=== PATIENT | female | born 1985 | race Caucasian/White ===

== ENCOUNTER 2017-04-26 10:30 | Inpatient (IN) | payer MEDICAID ==
[~2017-04-26] VITALS: Ht 149.9 cm; Wt 75.4 kg
[~2017-04-26 10:30] MED LIST: PREN1TAB49
[2017-04-26 10:44] VITALS: Ht 149.9 cm; Wt 75.4 kg
[2017-04-26 10:53] VITALS: BP 118/62; PULSE 70; RESP 18
[2017-04-26] MEDS ORDERED: LACTATED RINGER'S 1,000 ML IV SCH (12:00)
[2017-04-26 12:53] LABS: ADD SCAN DIFF NO
[2017-04-26 12:59] LABS: ABNORMAL IP MESSAGE 1; BASOPHILS % 0.2 % (0.0-2.0); EOSINOPHILS % 0.4 % (0.0-7.0); HEMATOCRIT 37.5 % (37.0-47.0); HEMOGLOBIN 12.5 g/dl (12.0-16.0); LYMPHOCYTES # 1.2 10^3/ul (0.8-2.9); LYMPHOCYTES % 13.7 % (15.0-51.0); MEAN CORPUSCULAR HEMOGLOBIN 28.2 pg (29.0-33.0); MEAN CORPUSCULAR HGB CONC 33.3 g/dl (32.0-37.0); MEAN CORPUSCULAR VOLUME 84.7 fl (82.0-101.0); MEAN PLATELET VOLUME 13.7 fl (7.4-10.4); MONOCYTE # 0.7 10^3/ul (0.3-0.9); MONOCYTES % 7.2 % (0.0-11.0); NEUTROPHILS % 78.2 % (39.0-77.0); PLATELET COUNT 135 10^3/UL (140-415); RED BLOOD COUNT 4.43 10^6/ul (4.20-5.40); RED CELL DISTRIBUTION WIDTH 13.1 % (11.5-14.5)
[2017-04-26] MEDS ORDERED: TERBUTALINE 1 ML ONE (13:15)
[2017-04-26 13:20] LABS: INR 0.91; PROTIME 12.2 Sec (12.2-14.2)
[2017-04-26] MEDS ORDERED: CARBOPROST 250 MCG INJ IM PRN ×2 (13:30→20:00)
[2017-04-26] MEDS ORDERED: OXYTOCIN 30 UNITS/LR 500 ML IV PRN ×2 (13:30→20:00)
[2017-04-26] MEDS ORDERED: TERBUTALINE 1 MG/ML INJ SC ONE ×2 (13:30)
[2017-04-26] MEDS ORDERED: MISOPROSTOL 200 MCG TAB PR PRN ×2 (13:30→20:00)
[2017-04-26] MEDS ORDERED: METHYLERGONOVINE 0.2 MG INJ IM PRN ×2 (13:30→20:00)
[2017-04-26] MEDS: LACTATED RINGER'S 1,000 ML IV SCH ×3 (13:31→14:53)
[2017-04-26] MEDS ORDERED: CEFAZOLIN 2 GM/50 ML (PMX) 50 ML IVPB ONE (13:42)
--- NOTE | 2017-04-26 13:47 | TRIAGE ---
OB Triage Datetime Report Generated by CPN: 04/26/2017 13:46 Datetime: 04/26/2017 13:25 Assessment Type: Admission Assessment Vaginal Bleeding: None Maternal Assessment Level of Consciousness: Fully Conscious DTR's/Clonus: DTRs 2+; No Clonus Headache: Denies Blurred Vision: No Respiratory Effort: Unlabored; Regular Rhythm; Equal Expansion Breath Sounds, Left: Clear and Equal Breath Sounds, Right: Clear and Equal Nausea/Vomiting: Denies RUQ Epigastric Pain: Denies Lower Extremities Edema: None Degree: None Upper Extremities Edema: None Degree: None Facial Edema: None Fall Risk Assessment History of Falling: (0) No Secondary Diagnosis: (0) No Ambulatory Aid: (0) Bedrest/Nurse Assist Gait: (0) Normal/Bedrest/Immobile Mental Status: (0) Oriented to Own Ability Labor Evaluation Frequency: 3-4 Duration (sec)2399: 60 Heart Rate FHR Baseline Rate: 150 Variability: Moderate 6-25 bpm Accelerations: 15X15 Decelerations: None Category: Category I Pain Assessment Pain Scale: 5 Pain Presence: Intermittent Pain Type: Cramping; Contraction Pain Location: Abdomen Membrane Status: Intact Datetime: 04/26/2017 13:20 Stage of : Labor Headache: Denies Blurred Vision: No RUQ Epigastric Pain: Denies Facial Edema: None Labor Evaluation Frequency: 3 Monitor Mode: External Duration (sec)2399: 70 Quality: Moderate Pattern: Normal: <= 5 Contractions in 10 Minutes Resting Tone [place]: Relaxed Heart Rate FHR Baseline Rate: 150 Monitor Mode: External US FHR Baseline Changes: No Baseline Change Variability: Moderate 6-25 bpm Accelerations: 15X15 Decelerations: None Category: Category I Pain Presence: Intermittent Pain Type: Contraction Pain Location: Abdomen Pain Relief Measures: Comfort Measures Membrane Status: Intact Datetime: 04/26/2017 12:00 Labor Evaluation Frequency: 3-4 Monitor Mode: External Duration (sec)2399: 60 Quality: Moderate Pattern: Normal: <= 5 Contractions in 10 Minutes Resting Tone [place]: Relaxed Heart Rate FHR Baseline Rate: 150 Monitor Mode: External US FHR Baseline Changes: No Baseline Change Variability: Moderate 6-25 bpm Accelerations: 15X15 Decelerations: None Category: Category I Membrane Status: Intact Datetime: 04/26/2017 11:01 Labor Evaluation Frequency: 3-4 Monitor Mode: External Duration (sec)2399: 60 Quality: Moderate Pattern: Normal: <= 5 Contractions in 10 Minutes Resting Tone [place]: Relaxed Heart Rate FHR Baseline Rate: 150 Monitor Mode: External US FHR Baseline Changes: No Baseline Change Variability: Moderate 6-25 bpm Accelerations: 15X15 Decelerations: None Category: Category I Datetime: 04/26/2017 10:55 Vaginal Exam Dilatation (cms): 0.0 Effacement (%): 40 Station: -3 Exam By: [facility] Vaginal Bleeding: None Cervix, Consistency: Firm Cervix, Position: Posterior Presentation 'A': Cephalic Datetime: 04/26/2017 10:49 Stage of : OB Triage EGA: 39.1 Arrived By: Ambulatory Arrived From: Home Maternal Assessment Level of Consciousness: Fully Conscious DTR's/Clonus: DTRs 2+; No Clonus Headache: Denies Blurred Vision: No Respiratory Effort: Unlabored; Regular Rhythm; Equal Expansion Breath Sounds, Left: Clear and Equal Breath Sounds, Right: Clear and Equal Nausea/Vomiting: Denies RUQ Epigastric Pain: Denies Lower Extremities Edema: None Degree: None Upper Extremities Edema: None Degree: None Facial Edema: None Temperature Route: Axillary Fall Risk Assessment History of Falling: (0) No Secondary Diagnosis: (0) No Ambulatory Aid: (0) Bedrest/Nurse Assist IV Therapy: (0) No Gait: (0) Normal/Bedrest/Immobile Mental Status: (0) Oriented to Own Ability Fall Score: 0 Fall Risk Score Definition: No Risk: No action required Labor Evaluation Frequency: 10 Monitor Mode: External Duration (sec)2399: 60 Quality: Mild Pattern: Normal: <= 5 Contractions in 10 Minutes Resting Tone [place]: Relaxed Heart Rate FHR Baseline Rate: 150 Monitor Mode: External US FHR Baseline Changes: No Baseline Change Pain Assessment Pain Scale: 6 Pain Presence: Intermittent Pain Type: Cramping; Contraction Pain Location: Abdomen Pain Relief Measures: Comfort Measures Datetime: 04/26/2017 10:47 Time of Arrival: 04/26/2017 10:08 Arrived By: Ambulatory Arrived From: Home Chief Complaint: contractions Movement: Present Contractions: Regular Time Contractions Began: 04/26/2017 06:00 Contractions: 10 Vaginal Bleeding: None Patient Complaints: Contractions Time Provider Notified: 04/26/2017 11:45 Provider Notified: Dr Blas Initial Plan: angel luis/ fernanda
[2017-04-26] MEDS ORDERED: CEFAZOLIN 2 GM/50 ML (PMX) 50 ML IV SCH (14:00)
--- NOTE | 2017-04-26 15:28 | HP ---
Date/Time of Note Date/Time of Note DATE: 04/26/17 TIME: 15:27 OB - History Hx of Present Free Text/Dictation term preg at 39 weeks in labor with repeat Care: Good Care Ultrasounds: Normal mid trimester US Obstetrical Complications: None Medical Complications: None Past Family/Social History * Past Medical, Surgical, Family and Obstetric Histories reviewed from chart. OB Admission Exam Vital Signs Vital Signs Vital Signs Date Time Temp Pulse Resp B/P Pulse Ox O2 Delivery O2 Flow Rate FiO2 04/26/17 10:53 98.0 70 18 118/62 Room Air Physical Exam HEENT: WNL Heart: Rhythm Normal Lungs: Clear, Equal Abdomen: WNL Extremities: Normal Reflexes: Normal Intensity: Moderate Last 72 hours Lab Results CBC & BMP 04/26/17 12:15 OB Assessment/Plan Reason for admission: section Plan: Section VIKI COOLEY MD April 26, 2017 15:28
--- NOTE | 2017-04-26 15:32 | OPR ---
Operative Report Planned Procedure Free Text/Dictation term preg. c/s Procedure date April 26, 2017 Anesthesia Type: spinal Procedure Description Under satisfactory [spinal ] anesthesia, the patient was prepped and draped and placed in a supine position, tilted to the left. Pfannenstiel incision was made , carried through the subcutaneous tissue. Bleeders brought under control with electrocautery. Fascia incised to the length of the incision. Rectus muscles from the fascia, divided midline. Peritoneum exposed, entered through a transverse incision. Exploration of abdomen revealed gravid uterus. Bladder flap was developed. Transverse incision was made in the lower segment of the uterus. Amniotic sac ruptured. [clear ] amniotic fluid noted. [] Nasal oropharyngeal suction was performed. The baby was handed to the team for immediate attention. The placenta was delivered manually intact. Uterine cavity was cleaned with wet sponge and drainage established. Uterus closed in 2 layers using one monocryl[] in continuous fashion. Peritoneal cavity irrigated with warm saline. Sponge, needle and instrument count reported to be correct. Abdominal peritoneum closed with [] continuously. Rectus muscle approximated with []. Fascia closed with [omoncryl one], and skin closed with herbert. Estimated blood loss [700]mL. Urine bag contained []mL of urine Post-Procedure Findings: Live Baby [], Apgars [] and [], weight [], position [], [] presentation []cord. Specimen removed: Yes Complications: None Pt Condition post procedure: stable Physician Certification I, the undersigned physician, hereby certify that I have discussed the procedure described in this consent form with this patient (or the patient's legal member service representative), including: * The risk and benefits of the procedure; * Any adverse reactions that may reasonably be expected to occur; * Any alternative efficacious methods of treatment which may be medically viable ; * The potential problems that may occur during recuperation; * Potential for blood transfusion and associated risks/benefits; and * Any research or economic interest I may have regarding this treatment. I further certify that the patient/legally responsible person was encouraged to ask question and that all questions were answered. VIKI COOLEY MD April 26, 2017 15:32
[2017-04-26] MEDS ORDERED: morphine SULFATE/PF (10 MG/10 ML) INJ ONE (15:46)
[2017-04-26] MEDS ORDERED: FENTAnyl 50 MCG/ML VIAL ONE (16:08)
[2017-04-26] MEDS ORDERED: OXYTOCIN 30 UNITS/LR 500 ML IV ONE (16:08)
[2017-04-26] MEDS ORDERED: ONDANSETRON 4 MG INJ ONE (16:20)
[2017-04-26] MEDS ORDERED: DEXAMETHASONE 4 MG/ML 1 ML INJ ONE (16:20)
[2017-04-26] MEDS ORDERED: ONDANSETRON 4 MG INJ IV PRN (16:30)
[2017-04-26] MEDS ORDERED: DIPHENHYDRAMINE 50 MG INJ IV PRN (16:30)
[2017-04-26] MEDS ORDERED: ZOLPIDEM 5 MG TAB PO PRN (16:30)
[2017-04-26] MEDS ORDERED: KETOROLAC 30 MG INJ IV PRN (16:30)
[2017-04-26] MEDS ORDERED: HYDROmorphONE 1 MG/ML SYG IV PRN ×2 (16:30)
[2017-04-26] MEDS ORDERED: NALOXONE (0.4 MG/ML) INJ IV PRN (16:30)
[2017-04-26] MEDS: OXYTOCIN 30 UNITS/LR 500 ML IV SCH ×3 (16:59→23:21)
[2017-04-26] MEDS: IBUPROFEN 800 MG TAB PO SCH (19:59)
[2017-04-26 20:00] VITALS: BP 110/51; PULSE 63; RESP 19
[2017-04-26] MEDS ORDERED: LANOLIN 7 GM TUBE TOP PRN (20:00)
[2017-04-26] MEDS ORDERED: OXYCODONE/ACETAMINOPHEN (5/325) TAB PO PRN (20:00)
[2017-04-26] MEDS ORDERED: ACETAMINOPHEN/CODEINE #3 TAB PO PRN (20:00)
[2017-04-26] MEDS ORDERED: NA PHOSPHATE/BIPHOS 133 ML ENEMA PR PRN (20:00)
[2017-04-26] MEDS ORDERED: NACL 0.9% 3 ML SYG IV SCH (20:00)
[2017-04-26 23:45] VITALS: BP 101/51; PULSE 61; RESP 20
[2017-04-27 03:45] VITALS: BP 92/46; PULSE 61; RESP 18
[2017-04-27] MEDS: LACTATED RINGER'S 1,000 ML IV SCH ×3 (03:56→11:56)
[2017-04-27] MEDS: OXYTOCIN 30 UNITS/LR 500 ML IV SCH (04:12)
[2017-04-27] MEDS: IBUPROFEN 800 MG TAB PO SCH ×3 (06:00→21:19)
[2017-04-27 08:15] VITALS: BP 94/46; PULSE 57; RESP 17
[2017-04-27 08:21] LABS: ADD SCAN DIFF NO
[2017-04-27 08:27] LABS: ABNORMAL IP MESSAGE 1; BASOPHILS % 0.1 % (0.0-2.0); HEMATOCRIT 31.9 % (37.0-47.0); LYMPHOCYTES # 1.6 10^3/ul (0.8-2.9); LYMPHOCYTES % 12.1 % (15.0-51.0); MEAN CORPUSCULAR HEMOGLOBIN 28.8 pg (29.0-33.0); MEAN CORPUSCULAR HGB CONC 34.5 g/dl (32.0-37.0); MEAN CORPUSCULAR VOLUME 83.5 fl (82.0-101.0); MEAN PLATELET VOLUME 13.7 fl (7.4-10.4); MONOCYTE # 1.1 10^3/ul (0.3-0.9); MONOCYTES % 8.7 % (0.0-11.0); NEUTROPHIL # 10.3 10^3/ul (1.6-7.5); NEUTROPHILS % 78.6 % (39.0-77.0); PLATELET COUNT 129 10^3/UL (140-415); RED BLOOD COUNT 3.82 10^6/ul (4.20-5.40); RED CELL DISTRIBUTION WIDTH 13.2 % (11.5-14.5); WHITE BLOOD COUNT 13.1 10^3/ul (4.8-10.8)
[2017-04-27 15:45] VITALS: BP 86/51; PULSE 57; RESP 19
[2017-04-27 19:48] VITALS: BP 105/69; PULSE 60; RESP 18
[2017-04-28 03:50] VITALS: BP 104/61; PULSE 57; RESP 20
[2017-04-28] MEDS: IBUPROFEN 800 MG TAB PO SCH ×3 (05:29→21:39)
[2017-04-28 08:00] VITALS: BP 114/63; PULSE 66; RESP 18
--- NOTE | 2017-04-28 10:45 | OPPN ---
Date/Time of Note Date/Time of Note DATE: 04/28/17 TIME: 10:45 Post-Anesthesia Notes Post-Anesthesia Note Last documented vital signs Vital Signs Date Time Temp Pulse Resp B/P Pulse Ox O2 Delivery O2 Flow Rate FiO2 04/28/17 08:00 98.4 66 18 114/63 Room Air 04/27/17 15:20 98 21 Activity: WNL Respiratory function: WNL Cardiovascular function: WNL Mental status: Baseline Pain reasonably controlled: Yes Hydration appropriate: Yes Nausea/Vomiting absent: Yes NATALY VARELA Apr 28, 2017 10:45
--- NOTE | 2017-04-28 13:47 | PN ---
Date/Time of Note Date/Time of Note DATE: 04/28/17 TIME: 13:47 OB Subjective Subjective Subjective doing well vss abd soft incision c &d cpm VIKI COOLEY MD Apr 28, 2017 13:47
--- NOTE | 2017-04-28 13:54 | DS ---
Date/Time of Note Date/Time of Note DATE: 04/28/17 TIME: 13:54 Discharge Summary Admission/Discharge Info Admit Date/Time April 26, 2017 at 13:09 Discharge Date/Time Final Diagnosis term preg Patient Condition: Stable Hospital Course unremarkable Home Meds Reported Medications Vits W-Ca,Fe,Fa(<1MG) () 1 Tab Tablet, DAILY 04/15/12 Primary Care Provider Care Physician No Primary VIKI COOLEY MD Apr 28, 2017 13:54
[2017-04-28 16:00] VITALS: BP 105/69; PULSE 68; RESP 18
[2017-04-28 19:35] VITALS: BP 102/62; PULSE 72; RESP 18
[2017-04-29 03:50] VITALS: BP 115/61; PULSE 56; RESP 20
[2017-04-29] MEDS: IBUPROFEN 800 MG TAB PO SCH (05:36)
[2017-04-29 08:00] VITALS: BP 106/75; PULSE 57; RESP 18
[2017-04-29] MEDS ORDERED: DIPHTH/TET/ACEL PERTUSS (ADULT) 0.5 ML VIAL IM* ONE (09:00)
[2017-04-29] MEDS ORDERED: MEASLES,MUMPS,RUBELLA VACCINE INJ SC* ONE (09:00)
== END 2017-04-29 17:34 | disposition home or self-care (01) | DRG 766 ==
LOC: L-D 10:30 → OBT 10:30 → L-D 13:09 → PP1 20:06
PROVIDERS: ADMIT Obstetrics & Gynecology; ATTEND Obstetrics & Gynecology
PROC: 10D00Z1 Extraction of Products of Conception, Low, Open Approach (ICD-10-PCS; principal; 2017-04-26 15:00)
PROC: 3E00X4Z Introduction of Serum, Toxoid and Vaccine into Skin and Mucous Membranes, External Approach (ICD-10-PCS; 2017-04-29)
DX: O34.211 Maternal care for low transverse scar from previous cesarean delivery (principal); Z23 Encounter for immunization; Z3A.39 39 weeks gestation of pregnancy; Z37.0 Single live birth
CPT/HCPCS: 36415; 85025; 85610; 85730; 86592; 86703; 86850; 86900; 86901; 87340; 90715; 94760; 99464; G0463; J0690; J1100; J2274; J2405; J2590; J3010; J3105; J7120